=== PATIENT | female | born 1970 ===

== ENCOUNTER 2017-04-01 08:19 | Emergency (ER) | payer SELFPAY ==
[2017-04-01 08:35] VITALS: BP 138/82
[2017-04-01] MEDS ORDERED: Sodium Chloride 0.9% 10 ML Syringe FLUSH PRN (08:51)
[2017-04-01] MEDS ORDERED: Sodium Chloride 0.9% 1,000 ML IV STA (08:51)
[2017-04-01] MEDS ORDERED: HYDROmorphone 1 MG/ML Syringe IVPUSH ONE ×2 (08:54→09:59)
--- NOTE | 2017-04-01 09:06 | EDM.PDOC ---
ED HPI GI/ABDOMINAL - General Chief Complaint: Flank Pain Stated Complaint: FLANK PAIN, ABDOMINAL PAIN Time Seen by Provider: 04/01/17 08:36 Source of Information: Reports: Patient History Limitations: Reports: No limitations - History of Present Illness INITIAL COMMENTS - FREE TEXT/NARRATIVE: The patient presents with bilateral flank pain that radiates down to her lower abdomen and pelvis. This all started this morning about 6:50am. She got nauseated at first but that is better. She did not vomit. It is a sharp pain. It will double her over. She had a few episodes of pain the past month in her right upper abdomen. It only lasted a few minutes and it went away. She denies fever, chills, cough, congestion, runny nose, chest pain or shortness of breath. She has never had a kidney stone before. She has no dysuria and no urinary frequency. Timing/Duration: Reports: Day(s): (started at 6:50) Location: flank Quality: Reports: stabbing Severity: severe Context: Denies: sick contact, bad/questionable food, out of country travel, recent surgery, recent trauma, lifting, activity/exercise Associated Symptoms (-Female): Reports: nausea/vomiting. 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: - Infectious Disease History Infectious Disease History: Reports: Hepatitis C Other Infectious Disease History: Patient states that her Hep C was cured three years ago - Past Surgical History GI Surgical History: Reports: Cholecystectomy Social & Family History - Tobacco Use Smoking Status *Q: Current Every Day Smoker Years of Tobacco use: 35 Packs/Tins Daily: 0.3 Used Tobacco, but Quit: No Second Hand Smoke Exposure: No - Caffeine Use Caffeine Use: Reports: Coffee - Recreational Drug Use Recreational Drug Use: No ED ROS GENERAL - Review of Systems Review Of Systems: See Below Constitutional: Reports: no symptoms HEENT: Reports: No symptoms Respiratory: Reports: No Symptoms Cardiovascular: Reports: No symptoms Endocrine: Reports: no symptoms GI/Abdominal: Reports: Abdominal pain, Nausea. Denies: Vomiting : Reports: flank pain Musculoskeletal: Reports: no symptoms Skin: Reports: no symptoms ED EXAM, GI/ABD - Physical Exam Exam: See Below Exam Limited By: No limitations General Appearance: alert, no apparent distress Ears: normal external exam Nose: normal inspection Head: atraumatic, normocephalic Neck: normal inspection Respiratory/Chest: no respiratory distress, lungs clear, normal breath sounds Cardiovascular: regular rate, rhythm, no edema, no murmur GI/Abdominal: soft, non tender, no organomegaly, no mass Back Exam: normal inspection Extremities: normal inspection Course - Vital Signs Last Recorded V/S: Last Vital Signs Temp 98.8 F 04/01/17 08:32 Pulse 89 04/01/17 08:32 Resp 20 04/01/17 08:32 BP 138/82 04/01/17 08:32 Pulse Ox 98 04/01/17 08:32 - Orders/Labs/Meds Orders: Active Orders 24 hr Category Date Time Status Enema [RC] ASDIRECTED Care 04/01/17 12:07 Active Pelvic Exam, Set Up [RC] ASDIRECTED Care 04/01/17 09:59 Active Peripheral IV Care [RC] . DIRECTED Care 04/01/17 08:52 Active Sodium Chloride 0.9% [Saline Flush] Med 04/01/17 08:51 Active 10 ml FLUSH ASDIRECTED PRN Peripheral IV Insertion Adult [OM.PC] Stat Oth 04/01/17 08:51 Ordered Medication Orders Sodium Chloride (Saline Flush) 10 ml FLUSH ASDIRECTED PRN PRN Reason: Keep Vein Open Last Admin: 04/01/17 09:22 Dose: 10 ml Labs: Laboratory Tests 04/01/17 04/01/17 04/01/17 Range/Units 09:13 09:15 09:15 WBC 7.04 (3.98-10.04) K/mm3 RBC 4.42 (3.98-5.22) M/mm3 Hgb 13.9 (11.2-15.7) gm/L Hct 40.6 (34.1-44.9) % MCV 91.9 (79.4-94.8) fl MCH 31.4 (25.6-32.2) pg MCHC 34.2 (32.2-35.5) g/dl RDW Std Deviation 42.6 (36.4-46.3) fL Plt Count 305 (182-369) K/mm3 MPV 10.4 (9.4-12.3) fl Neut % (Auto) 54.8 (34.0-71.1) % Lymph % (Auto) 33.2 (19.3-51.7) % [place] % (Auto) 9.2 (4.7-12.5) % Eos % (Auto) 2.0 (0.7-5.8) Baso % (Auto) 0.7 (0.1-1.2) % Neut # (Auto) 3.85 (1.56-6.13) K/mm3 Lymph # (Auto) 2.34 (1.18-3.74) K/mm3 [place] # (Auto) 0.65 H (0.24-0.36) K/mm3 Eos # (Auto) 0.14 (0.04-0.36) K/mm3 Baso # (Auto) 0.05 (0.01-0.08) K/mm3 Sodium 140 (136-145) mEq/L Potassium 4.2 (3.5-5.1) mEq/L Chloride 107 (98-107) mEq/L Carbon Dioxide 25 (21-32) mEq/L Anion Gap 12.2 (5-15) BUN 13 (7-18) mg/dL Creatinine 0.8 (0.55-1.02) mg/dL Est Cr Clr Drug Dosing 83.63 mL/min Estimated GFR (MDRD) > 60 (>60) mL/min BUN/Creatinine Ratio 16.3 (14-18) Glucose 92 (74-106) mg/dL Calcium 8.8 (8.5-10.1) mg/dL Total Bilirubin 0.4 (0.2-1.0) mg/dL AST 13 L (15-37) U/L ALT 25 (14-59) U/L Alkaline Phosphatase 82 (46-116) U/L Total Protein 7.0 (6.4-8.2) g/dl Albumin 3.8 (3.4-5.0) g/dl Globulin 3.2 gm/dL Albumin/Globulin Ratio 1.2 (1-2) Lipase 198 (73-393) U/L HCG, Qual (NEGATIVE) HCG, Quant < 1.0 mIU/mL Urine Color (Yellow) Urine Appearance (Clear) Urine pH (5.0-8.0) Ur Specific [place] (1.005-1.030) Urine Protein (Negative) Urine Glucose (UA) (Negative) Urine Ketones (Negative) Urine Occult Blood (Negative) Urine Nitrite (Negative) Urine Bilirubin (Negative) Urine Urobilinogen (0.2-1.0) Ur Leukocyte Esterase (Negative) Urine RBC (0-5) /hpf Urine WBC (0-5) /hpf Ur Epithelial Cells (0-5) /hpf Urine Bacteria (FEW) /hpf Urine Mucus (FEW) /hpf 04/01/17 04/01/17 Range/Units 09:15 10:15 WBC (3.98-10.04) K/mm3 RBC (3.98-5.22) M/mm3 Hgb (11.2-15.7) gm/L Hct (34.1-44.9) % MCV (79.4-94.8) fl MCH (25.6-32.2) pg MCHC (32.2-35.5) g/dl RDW Std Deviation (36.4-46.3) fL Plt Count (182-369) K/mm3 MPV (9.4-12.3) fl Neut % (Auto) (34.0-71.1) % Lymph % (Auto) (19.3-51.7) % [place] % (Auto) (4.7-12.5) % Eos % (Auto) (0.7-5.8) Baso % (Auto) (0.1-1.2) % Neut # (Auto) (1.56-6.13) K/mm3 Lymph # (Auto) (1.18-3.74) K/mm3 [place] # (Auto) (0.24-0.36) K/mm3 Eos # (Auto) (0.04-0.36) K/mm3 Baso # (Auto) (0.01-0.08) K/mm3 Sodium (136-145) mEq/L Potassium (3.5-5.1) mEq/L Chloride (98-107) mEq/L Carbon Dioxide (21-32) mEq/L Anion Gap (5-15) BUN (7-18) mg/dL Creatinine (0.55-1.02) mg/dL Est Cr Clr Drug Dosing mL/min Estimated GFR (MDRD) (>60) mL/min BUN/Creatinine Ratio (14-18) Glucose (74-106) mg/dL Calcium (8.5-10.1) mg/dL Total Bilirubin (0.2-1.0) mg/dL AST (15-37) U/L ALT (14-59) U/L Alkaline Phosphatase (46-116) U/L Total Protein (6.4-8.2) g/dl Albumin (3.4-5.0) g/dl Globulin gm/dL Albumin/Globulin Ratio (1-2) Lipase (73-393) U/L HCG, Qual Negative (NEGATIVE) HCG, Quant mIU/mL Urine Color Yellow (Yellow) Urine Appearance Clear (Clear) Urine pH 7.0 (5.0-8.0) Ur Specific [place] 1.015 (1.005-1.030) Urine Protein Negative (Negative) Urine Glucose (UA) Negative (Negative) Urine Ketones Negative (Negative) Urine Occult Blood Negative (Negative) Urine Nitrite Negative (Negative) Urine Bilirubin Negative (Negative) Urine Urobilinogen 0.2 (0.2-1.0) Ur Leukocyte Esterase Negative (Negative) Urine RBC Not seen (0-5) /hpf Urine WBC 0-5 (0-5) /hpf Ur Epithelial Cells 0-5 (0-5) /hpf Urine Bacteria Not seen (FEW) /hpf Urine Mucus Not seen (FEW) /hpf Meds: Medications Generic Name Dose Route Start Last Admin Trade Name Freq PRN Reason Stop Dose Admin Sodium Chloride 10 ml 04/01/17 08:51 04/01/17 09:22 Saline Flush FLUSH 10 ml ASDIRECTED PRN Administration Keep Vein Open Discontinued Medications Generic Name Dose Route Start Last Admin Trade Name Freq PRN Reason Stop Dose Admin Hydromorphone HCl 1 mg 04/01/17 08:54 04/01/17 09:22 Dilaudid IVPUSH 04/01/17 08:55 1 mg ONETIME ONE Administration Hydromorphone HCl 1 mg 05/03/17 09:59 04/01/17 10:05 Dilaudid IVPUSH 04/01/17 10:00 1 mg ONETIME ONE Administration Sodium Chloride 1,000 mls @ 1,000 mls/hr 04/01/17 08:51 04/01/17 09:22 Normal Saline IV 04/01/17 09:50 1,000 mls/hr .BOLUS STA Administration Ketorolac Tromethamine 30 mg 04/01/17 11:27 04/01/17 11:39 Toradol IVPUSH 04/01/17 11:28 30 mg ONETIME ONE Administration Lidocaine HCl 10 ml 04/01/17 12:07 04/01/17 12:13 Xylocaine 2% Jelly MUCMEM 04/01/17 12:08 10 ml ONETIME ONE Administration Ondansetron HCl 4 mg 04/01/17 13:43 04/01/17 13:47 Zofran IVPUSH 04/01/17 13:44 4 mg ONETIME ONE Administration - Re-Assessments/Exams Free Text/Narrative Re-Assessment/Exam: 04/01/17 09:05 I ordered an IV NS 1L bolus, dilaudid 1mg IV, labs, UA and CT of her abdomen and pelvis without contrast. 04/01/17 14:22 Her CBC and CMP look good. Her UA shows no UTI. She had more pain so I gave her some dilaudid. Her CT shows no renal calculi, ureteral dilatation or ureteral stone is seen. Appendix is seen which is normal. Increased stool noted throughout the colon and other incidental findings. I gave her some toradol 30mg IV because she has some more pain. I then did a pelvic exam and there was nothing abnormal that I could see. She just had some pain. It appears she has some constipation. I gave her an enema. She had a little out put and she feels better. I will give her some magnesium citrate to help clean her out. I called Dr Berry and he recommended an US. The US shows abnormality within the lip of the cervix. Uncertain as to etiology. Cervical cytology is recommended. I will have the patient follow up with Dr Berry tomorrow at 2:30pm. Departure - Departure Time of Disposition: 14:30 Disposition: Home, Self-Care 01 Condition: good Clinical Impression: Pelvic pain Constipation Qualifiers: Constipation type: other constipation type Qualified Code(s): K59.09 - Other constipation Abdominal pain Qualifiers: Abdominal location: left lower quadrant Qualified Code(s): R10.32 - Left lower quadrant pain Prescriptions: Ondansetron [Zofran ODT] 4 mg PO Q6H PRN #20 tab.dis PRN Reason: Nausea/Vomiting traMADol [Ultram] 50 - 100 mg PO Q6H PRN #20 tablet PRN Reason: Pain Referrals: Malik Berry MD [Physician] - (Tomorrow at 2:30pm, Check in at 2:15.) Forms: ED Department Discharge Additional Instructions: Drink plenty of fluids. Try to drink at least eight 8 ounce glasses of water. Take senna daily. Take the other half of the magnesium citrate bottle at home if you do not have bowel movement in 4 hours. Follow up with Dr Berry tomorrow at 2:30. Please come at 2:15 to check in. Please return if you are worse. - My Orders Last 24 Hours: My Active Orders 04/01/17 08:51 Sodium Chloride 0.9% [Saline Flush] 10 ml FLUSH ASDIRECTED PRN Peripheral IV Insertion Adult [OM.PC] Stat 04/01/17 08:52 Peripheral IV Care [RC] . DIRECTED 04/01/17 09:59 Pelvic Exam, Set Up [RC] ASDIRECTED 04/01/17 12:07 Enema [RC] ASDIRECTED - Assessment/Plan Last 24 Hours: My Active Orders 04/01/17 08:51 Sodium Chloride 0.9% [Saline Flush] 10 ml FLUSH ASDIRECTED PRN Peripheral IV Insertion Adult [OM.PC] Stat 04/01/17 08:52 Peripheral IV Care [RC] . DIRECTED 04/01/17 09:59 Pelvic Exam, Set Up [RC] ASDIRECTED 04/01/17 12:07 Enema [RC] ASDIRECTED
--- NOTE | 2017-04-01 10:05 | CT ---
CT abdomen and pelvis Technique: Multiple axial sections were obtained from above the dome of the diaphragm inferiorly through the pubic symphysis. Intravenous and oral contrast was not utilized. Study has been performed as a ureteral stone protocol. Kidneys show no abnormal calcifications. No ureteral dilatation or ureteral stone is seen. Visualized lung bases are clear. Noncontrast appearance of the liver appears within normal limits. Spleen appears normal. Adrenal glands show no nodule. Pancreas appears within normal limits. Surgical clipsare seen from prior cholecystectomy. Aorta shows mild atherosclerotic change which continues into the iliac vessels. No aneurysm is seen. No retroperitoneal adenopathy is seen. No mesenteric abnormalities are seen. No pelvic mass or adenopathy is seen. No free fluid is seen. No inflammatory change is appreciated. Appendix is seen and appears to be normal. Mild increased stool is noted throughout the colon. Bone window settings were reviewed which shows severe disc space narrowing at L5-S1 with vacuum phenomenon and anterior and posterior spurring. Lesser disc space narrowing is seen within other portions of the thoracic and lumbar spine. Impression: 1. No renal calculi, ureteral dilatation or ureteral stone is seen. 2. Appendix is seen which is normal. 3. Increased stool noted throughout the colon and other incidental findings. Diagnostic code #2
[2017-04-01] MEDS ORDERED: Ketorolac 30 MG/ML SDV IVPUSH ONE (11:27)
[2017-04-01] MEDS ORDERED: Lidocaine 2% Jelly 10 ML Urojet MUCMEM ONE (12:07)
--- NOTE | 2017-04-01 13:15 | US ---
Pelvic ultrasound: Multiple real-time images were obtained transvaginally. Comparison: Previous pelvic ultrasound study of 05/02/16. Uterus is anteverted. Endometrial thickness is difficult to see but shows no thickening. No myometrial abnormality is seen. Several nabothian cysts are seen. There is an ill defined abnormality within the cervical lip showing echogenic punctate dots. Uncertain as to etiology of this finding but cervical cytology is recommended and depending on that result, cervical biopsy may be needed. Ovary showed no cyst or solid abnormality. No free fluid is seen. Measurements: Uterus: Length 7.8 cm, AP height 4.7 cm, transverse width 5.8 cm Right ovary: 2.9 x 2.0 x 2.4 cm Left ovary: 2.8 x 1.6 x 2.0 cm Impression: 1. Abnormality within the lip of the cervix. Uncertain as to etiology. Recommendations as noted in the body the report. 2. Poorly seen endometrial stripe with no endometrial thickening seen. 3. Incidental nabothian cysts. Diagnostic code #9
[2017-04-01] MEDS ORDERED: Ondansetron 4 MG/2 ML SDV IVPUSH ONE (13:43)
[2017-04-01] MEDS ORDERED: Magnesium Citrate Solution 296 ML Bottle PO ONE (14:30)
== END 2017-04-01 15:00 | disposition home or self-care (01) ==
LOC: JD.ED 08:19
DX: R10.32 Left lower quadrant pain (principal); R10.2 Pelvic and perineal pain; K59.09 Other constipation; Z79.899 Other long term (current) drug therapy; F17.200 Nicotine dependence, unspecified, uncomplicated
CPT/HCPCS: 36415; 74176; 76830; 80053; 81001; 83690; 84702; 84703; 85025; 96361; 96374; 96375; 96376; 99284; A9270; J1170; J1885; J2405; J7040; J7050

== ENCOUNTER 2017-07-29 07:07 | Emergency (ER) | payer OTHER ==
[2017-07-29 07:21] VITALS: BP 130/81
[2017-07-29] MEDS ORDERED: Ketorolac 30 MG/ML SDV IVPUSH SCH (07:30)
[2017-07-29] MEDS ORDERED: Dextrose 5%-0.9% NaCl 1,000 ML IV SCH (07:30)
[2017-07-29] MEDS ORDERED: Metoclopramide 10 MG/2 ML SDV IVPUSH ONE (07:30)
[2017-07-29] MEDS ORDERED: HYDROmorphone 1 MG/ML Syringe IVPUSH ONE (07:31)
[2017-07-29] MEDS ORDERED: diphenhydrAMINE 50 MG/ML SDV IVPUSH ONE (07:31)
--- NOTE | 2017-07-29 07:31 | EDM.PDOC ---
ED HPI GENERAL MEDICAL PROBLEM - General Chief Complaint: Headache Stated Complaint: MIGRAINE Time Seen by Provider: 07/29/17 07:30 Source of Information: Reports: Patient, Family () History Limitations: Reports: No Limitations - History of Present Illness INITIAL COMMENTS - FREE TEXT/NARRATIVE: 47-year-old female presents the ED in the accompaniment of her . Patient has a severe generalized headache as if her head is in a vice and being squeezed. Treatment is pressure behind her eyes and in the base of her neck. Headache was present almost all day yesterday. They travel to [place] to the [facility] neurology [place] where she did see a neurosurgeon who injected her SI joint her sacrum with what sounds like a steroid injection to try and relieve lower extremity pain. Last evening the intensity of the headache increased and at 3:00 this morning she woke vomiting of bilious material. She's vomited 6 times since . No hematemesis. She is photosensitive. She hasn't had a migraine for about 15 years. Everything else is functioning normally in terms of hands and feet. She requires a little help to walk due to weakness and photophobia. Current headache is rated as 10 on a 10. Onset: Gradual (Started yesterday morning and gradually worsened as the day went on was 7 or 8 out of 10 before she went to bed last night and intensified) Onset Date: 07/28/17 Onset Time: 10:00 Duration: Hour(s):, Getting Worse Location: Reports: Head, Neck (Base of her skull bilaterally.) Quality: Reports: Ache, Throbbing, Other Severity: Severe (Pounding throbbing.) Improves with: Reports: None ( Rates current headache 10 out of 10.) Worsens with: Reports: Other, Movement Context: Reports: Other (Did receive some form of anti-inflammatory injection in her lower back or SI joint at the [facility] in [place] yesterday). Denies: Activity, Exercise (Exposure to light.), Lifting, Sick Contact, Trauma Associated Symptoms: Reports: Headaches, Malaise (See history of present illness ), Nausea/Vomiting. 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: Musculoskeletal History: Reports: Back Pain, Chronic (With sciatica left leg.) Neurological History: Reports: Migraines (Few and far between she is to get a lot of migraines last bad migraine headache was about 15 years ago.) - Infectious Disease History Infectious Disease History: Reports: Hepatitis C Other Infectious Disease History: Patient states that her Hep C was cured three years ago - Past Surgical History GI Surgical History: Reports: Cholecystectomy Social & Family History - Tobacco Use Smoking Status *Q: Never Smoker Years of Tobacco use: 35 Packs/Tins Daily: 0.3 Used Tobacco, but Quit: No Second Hand Smoke Exposure: No - Caffeine Use Caffeine Use: Reports: Coffee, Energy Drinks, Soda, Tea - Recreational Drug Use Recreational Drug Use: No - Living Situation & Occupation Living situation: Reports: Occupation: Employed ED ROS GENERAL - Review of Systems Review Of Systems: See Below Constitutional: Reports: Weakness, Fatigue, Decreased Appetite. Denies: Fever, Chills, Malaise, Weight Loss HEENT: Reports: Other Respiratory: Reports: No Symptoms (Photophobia) Cardiovascular: Reports: No Symptoms Endocrine: Reports: No Symptoms GI/Abdominal: Reports: Constipation : Reports: No Symptoms Musculoskeletal: Reports: Back Pain (Chronic low back pain with referred pain into the left but talk and posterior thigh. [place] to be sacroiliac or sacroiliitis in origin versus) Skin: Reports: No Symptoms Neurological: Reports: Dizziness, Headache Psychiatric: Reports: No Symptoms - Physical Exam Exam: See Below Exam Limited By: Other General Appearance: Alert, Moderate Distress, Other Eye Exam: Bilateral Eye: Normal Inspection, PERRL Throat/Mouth: Normal Inspection, Normal Lips, Normal Oropharynx, Other (Uvula is midline.) Head Exam: Atraumatic, Normocephalic Neck: Normal Inspection, Tender Midline, Other (Some pain on full forward flexion at the base of her skull bilaterally.). No: Full Range of Motion Respiratory/Chest: No Respiratory Distress, Lungs Clear, Normal Breath Sounds, No Accessory Muscle Use Cardiovascular: Normal Peripheral Pulses, Regular Rate, Rhythm, No Edema, No Gallop, No Murmur, Diastolic Murmur GI/Abdominal: Normal Bowel Sounds, Soft, Tender Neuro Exam (Abbreviated): Alert, Oriented, CN II-XII Intact, Normal Cognition, Normal Gait, No Motor/Sensory Deficits DTR: 1+: Patella (R), Patella (L), 2+: Bicep (R), Bicep (L) Back Exam: Normal Inspection, Decreased Range of Motion Extremities: Normal Inspection, Normal Range of Motion, Non-Tender, No Pedal Edema, Normal Capillary Refill Psychiatric: Tearful Skin Exam: Warm, Dry, Intact, Normal Color, No Rash Course - Vital Signs Last Recorded V/S: Last Vital Signs Temp 36.3 C 07/29/17 07:18 Pulse 63 07/29/17 07:18 Resp 18 07/29/17 07:18 BP 130/81 07/29/17 07:18 Pulse Ox 98 07/29/17 07:18 - Orders/Labs/Meds Orders: Active Orders 24 hr Category Date Time Status Dextrose 5%-0.9% NaCl [Dextrose 5%-Normal Saline] 1,000 Med 07/29/17 07:30 Active ml IV ASDIRECTED Ketorolac [Toradol] Med 07/29/17 07:30 Active 30 mg IVPUSH ONETIME Medication Orders Dextrose/Sodium Chloride (Dextrose 5%-Normal Saline) 1,000 mls @ 250 mls/hr IV ASDIRECTED ZITA Last Admin: 07/29/17 07:43 Dose: 250 mls/hr Ketorolac Tromethamine (Toradol) 30 mg IVPUSH ONETIME ZITA Last Admin: 07/29/17 07:46 Dose: 30 mg Meds: Medications Generic Name Dose Route Start Last Admin Trade Name Freq PRN Reason Stop Dose Admin Dextrose/Sodium Chloride 1,000 mls @ 250 mls/hr 07/29/17 07:30 07/29/17 07:43 Dextrose 5%-Normal Saline IV 250 mls/hr ASDIRECTED ZITA Administration Ketorolac Tromethamine 30 mg 07/29/17 07:30 07/29/17 07:46 Toradol IVPUSH 30 mg ONETIME ZITA Administration Discontinued Medications Generic Name Dose Route Start Last Admin Trade Name Conrad BELTRAN Reason Stop Dose Admin Diphenhydramine HCl 25 mg 07/29/17 07:31 07/29/17 07:45 Benadryl IVPUSH 07/29/17 07:32 25 mg ONETIME ONE Administration Hydromorphone HCl 1 mg 07/29/17 07:31 07/29/17 07:47 Dilaudid IVPUSH 07/29/17 07:32 1 mg ONETIME ONE Administration Metoclopramide HCl 7.5 mg 07/29/17 07:30 07/29/17 07:44 Reglan IVPUSH 07/29/17 07:31 7.5 mg ONETIME ONE Administration - Radiology Interpretation Free Text/Narrative:: 47-year-old female presents to the ED with a severe headache with intractable nausea and vomiting since 0300 hrs. this morning. Headache started yesterday morning but was milder through the day and intensified last evening. The tablets [employer] [facility] yesterday for neurosurgical consultation and she did receive 18 injection into her sacroiliac joint to her sacral area while at the [place]. Suspect it was a steroid injection with Depo-Medrol arm or triamcinolone. Unclear what other ingredients may have been injected. Whether or not it was a trigger point for headache is unlikely. Headache intensified last night went to the got home from [facility] and worsened overnight. She awoke at 0300 hrs. and began vomiting and has not been able to stop. Has had an ice pack to her head all night long. No medications would stay down. She was taking hydrocodone tablets one or 2 per day for back pain she didn't take any yesterday. I don't believe this represents withdrawal. Neuro exam is grossly normal. Plan IV D5 normal saline at 250 mils per hour. Will give Toradol 30 mg IV with Reglan 7.5 mg IV with Dilaudid 01 mg IV and Benadryl 25 mg IV. - Re-Assessments/Exams Free Text/Narrative Re-Assessment/Exam: 07/29/17 08:25 patient is feeling much improved. She was drowsy for. Time and actually need a little oxygen supplementation as she fell deeply asleep. Headache is down to 1 or 2. No further vomiting. On inquiry at this time looking for a dietary she does remember drinking a pomegranate keaton juice the day prior and is had a headache almost ever since. It's something that she has never taken before. Likely added red food dye to that product that she has strong sensitivity to. She'll be discharged to home in care of her back to bed for the next 4-6 hours to break the headache cycle. Follow-up as needed. Departure - Departure Time of Disposition: 08:26 Disposition: Home, Self-Care 01 Condition: Fair Clinical Impression: Migraine - Discharge Information Referrals: Adrian Reece MD [Primary Care Provider] - Forms: ED Department Discharge, ED Return to Work/School Form Additional Instructions: Evaluation in the emergency department this morning in regards to severe migraine headache with associated nausea and vomiting that developed over the last 20 hours. Neurologically you were intact. You're therefore treated with intravenous fluids and medications that include Benadryl 25 mg with Reglan 7.5 mg Dilaudid 1 mg and Toradol 30 mg to break the headache cycle and stop the nausea and vomiting. Suggest home to sleep or rest for the next 4-6 hours. Resume plenty of fluids when you wake up such as Gatorade or Powerade without any red food dye. Resume diet when able. As discussed watch out for red food dyes added to juice drinks particularly as they are often precipitants of migraines. - My Orders Last 24 Hours: My Active Orders 07/29/17 07:30 Dextrose 5%-0.9% NaCl [Dextrose 5%-Normal Saline] 1,000 ml IV ASDIRECTED Ketorolac [Toradol] 30 mg IVPUSH ONETIME - Assessment/Plan Last 24 Hours: My Active Orders 07/29/17 07:30 Dextrose 5%-0.9% NaCl [Dextrose 5%-Normal Saline] 1,000 ml IV ASDIRECTED Ketorolac [Toradol] 30 mg IVPUSH ONETIME
== END 2017-07-29 08:32 | disposition home or self-care (01) ==
LOC: JD.ED 07:07
DX: G43.909 Migraine, unspecified, not intractable, without status migrainosus (principal); Z88.5 Allergy status to narcotic agent; Z90.49 Acquired absence of other specified parts of digestive tract
CPT/HCPCS: 96361; 96374; 96375; 99284; J1170; J1200; J1885; J2765; J7042